=== PATIENT | male | born 1995 | race Caucasian/White ===

== ENCOUNTER 2017-06-04 10:02 | Emergency (ER) | payer OTHER, MEDICAID, SELFPAY | END 2017-06-04 10:53 | PROVIDERS: Emergency Provider Emergency Medicine; Visit Provider Emergency Medicine | DX: M79.602 Pain in left arm (principal); R20.0 Anesthesia of skin; R11.0 Nausea | CPT/HCPCS: 96372; 99283; J1885 ==

== ENCOUNTER 2017-07-22 17:10 | Emergency (ER) | payer OTHER, MEDICAID, SELFPAY ==
[2017-07-22 17:28] VITALS: BP 123/84; PULSE 82; RESP 16; TEMP 37.1; O2SAT 98; BMI 20.5
--- NOTE | 2017-07-22 17:49 | ED_ITS ---
Pediatric Review of Systems <ISIS Lei - Last Filed: 07/22/17 21:36> Constitutional: Reports as per HPI Eyes: Reports as per HPI ENT: Reports other (Foreign body left ear) Cardiovascular: Reports as per HPI Respiratory: Reports as per HPI Gastrointestinal: Reports as per HPI Genitourinary: Reports as per HPI Musculoskeletal: Reports as per HPI Integumentary: Reports as per HPI Neurological: Reports as per HPI Psychiatric: Reports as per HPI Endocrine: Reports as per HPI Hematological/Lymphatic: Reports as per HPI Allergic/Immunologic: Reports as per HPI Pediatric Exam <ISIS Lei - Last Filed: 07/22/17 21:36> Head Head exam: normocephalic, atraumatic and normal inspection Eye Eye exam: Present normal appearance, PERRL and EOMI ENT ENT exam: normal exam, normal oropharynx, normal external ear exam and other ( Floppy whitish foreign body seen to left external ear canal deep in the canal) Respiratory Respiratory exam: Present normal lung sounds bilaterally; Absent respiratory distress and wheezes Cardiovascular Cardiovascular exam: Present regular rate, normal rhythm, normal heart sounds, + S1 and +S2; Absent systolic murmur, diastolic murmur, rubs, gallop and clicks Neurological Exam Neurological exam: Present alert, oriented X3 and normal gait Skin Skin exam: Present warm, dry and intact Course <ISIS Lei - Last Filed: 07/22/17 21:36> Vital Signs - 8 hr 07/22/17 17:28 07/22/17 18:58 Temperature 98.8 F Pulse Rate 82 88 Respiratory Rate 16 15 Blood Pressure 123/84 H 131/73 H Pulse Oximetry 98 100 <Mary Arana MD - Last Filed: 07/23/17 07:37> Vital Signs - 8 hr 07/22/17 17:28 07/22/17 18:58 Temperature 98.8 F Pulse Rate 82 88 Respiratory Rate 16 15 Blood Pressure 123/84 H 131/73 H Pulse Oximetry 98 100 Medical Decision Making <ISIS Lei - Last Filed: 07/22/17 21:36> MDM Narrative Medical decision making narrative: Attempted to irrigate the left external ear canal with lukewarm water and was unable to remove a foreign body. Patient tolerated well no complications. Will have patient follow up with ENT. Patient to call ENT office tomorrow to schedule follow-up appointment. Return emergency room for any worsening symptoms. Discharge Plan Departure Patient Disposition: Home, Self-Care Clinical Impression: Acute foreign body of left ear Discharge Date/Time: 07/22/17 19:01 Interventions: ED Discharge Assessment Last Done: 07/22/17 18:58 Instructions: DI for Removal of Foreign Body From Ear Activity Restrictions/Additional Instructions: Was not able to remove the foreign body of the left ear this evening with gentle irrigation. You referred to a ear nose and throat specialty. Call their office tomorrow at number provided. Use [id number] Tylenol or Motrin as needed for any discomfort. For any worsening symptoms return to the emergency room. Prescriptions: No Action No Known Home Medications RF: 0 Referrals: Laith Yang MD [Physician] - <Mary Arana MD - Last Filed: 07/23/17 07:37> Sign Out Provider Sign Out Attestation: I attest to the documentation recorded. I was the attending of record and available in the ED throught course. I agree with assessment and plan.
[2017-07-22 18:58] VITALS: BP 131/73; PULSE 88; RESP 15; O2SAT 100
== END 2017-07-22 19:01 | disposition home or self-care (01) ==
PROVIDERS: Emergency Provider Nurse Practitioner Family
DX: T16.2XXA Foreign body in left ear, initial encounter (principal)
CPT/HCPCS: 99282

== ENCOUNTER 2017-08-05 17:04 | Emergency (ER) | payer OTHER, MEDICAID, SELFPAY ==
[2017-08-05 17:14] VITALS: BP 154/80; PULSE 66; RESP 16; TEMP 36.6; O2SAT 100; BMI 20.5
--- NOTE | 2017-08-05 17:18 | DI.RAD.S_ITS ---
PROCEDURE: XR HIP W PEL IF DONE LT 2V INDICATIONS: 22 year-old male with persistent left hip pain after skateboard injury 2 weeks ago. TECHNIQUE: AP pelvis with lateral view(s) of the left hip(s). COMPARISON: None. FINDINGS: Bones: No fractures or dislocations. Pelvic ring appears intact. No suspicious bony lesions. Soft tissues: The visualized bowel gas pattern is normal. No suspicious soft tissue calcifications. IMPRESSION: No acute bony injuries of the left hip. Dictated by: Uday Dennison M.D. on 08/05/2017 at 18:43 Approved by: Uday Dennison M.D. on 08/05/2017 at 18:45
--- NOTE | 2017-08-05 20:13 | ED_ITS ---
HPI - Extremity Injury (Lower) <ISIS Esteban - Last Filed: 08/05/17 20:13> General Chief Complaint: Extremity Injury, Lower Stated Complaint: LEFT HIP PAIN Time Seen by Provider: 08/05/17 19:58 Source: patient Mode of arrival: ambulatory Limitations: no limitations History of Present Illness HPI Narrative: denies any other injury or issue than the L hip complaint: hip injury Onset (ago): week(s) (2) Injury: Left: hip Type of Injury: other (fall while skateboarding) Place: street/outdoors Severity: mild Severity scale (1-10): 1 Relieving factors: nothing Exacerbating factors: movement Context: fall Associated symptoms: snap/pop sensation Other symptoms: none Related Data Home Medications Medication Instructions Recorded Confirmed No Known Home Medications 07/22/17 07/22/17 Allergies Allergy/AdvReac Type Severity Reaction Status Date / Time No Known Drug Allergies Allergy Verified 07/22/17 17:31 Review of Systems <ISIS Esteban - Last Filed: 08/05/17 20:13> Review of Systems All systems reviewed & are unremarkable except as noted in HPI and below Constitutional Reports as per HPI ENT Ears, Nose, Mouth, and Throat: Denies neck pain Cardiovascular Denies chest pain and Denies dyspnea Respiratory Denies dyspnea Gastrointestinal Gastrointestinal: Denies abdominal pain Genitourinary Denies difficulty urinating Musculoskeletal Reports as per HPI, Denies abnormal gait, Reports back pain (low back and tailbone), Denies limited range of motion, Denies muscle weakness, Denies neck pain, Denies numbness and Denies radiating pain into limb Integumentary/Breasts Reports wounds (has scrape on L hip) Neurologic Denies abnormal gait and Denies numbness Exam <ISIS Esteban - Last Filed: 08/05/17 20:13> Initial Vital Signs Initial Vital Signs: Vital Signs Temperature 97.8 F 08/05/17 17:14 Pulse Rate 66 08/05/17 17:14 Respiratory Rate 16 08/05/17 17:14 Blood Pressure 154/80 H 08/05/17 17:14 Pulse Oximetry 100 08/05/17 17:14 Const General: cooperative, healthy appearing, comfortable, well developed and well groomed Nutritional Appearance: average body habitus and well nourished Orientation: alert, awake and oriented x3 [facility] Head: normal to inspection, normocephalic and atraumatic Ears: hearing grossly normal bilaterally and external ears normal Nose: external nose normal Face and sinus: normal facial exam Eyes General: appearance normal, both eyes and all related structures Visual Diamond: normal visual diamond by confrontation Alignment and Position: alignment normal Eyelids: eyelids normal Conjunctivae: conjunctivae normal Sclera: sclerae normal Pupils: PERRL Neck Neck: normal visual inspection, full ROM, trachea midline and supple Resp Effort & Inspection: normal respiratory effort and able to speak in complete sentences GI Inspection: normal to inspection Palpation: soft and No tender Back/Spine/Pelvis Back: normal to inspection, No back tenderness, No CVA tenderness and No ecchymosis Cervical Spine: normal cervical lordosis and cervical ROM normal Thoracic/Lumbar Spine: thoracic and lumbar spine normal to inspection Sacroiliac Joints: nontender Sacrum: no tenderness Skin General: elasticity normal, turgor normal and other (dime size erythema arie on L hip and pt says that is the scrape he was talking about) Trauma: lacerations and/or abrasions noted Wounds: wound noted Neuro General: alert, awake and oriented x3 Cranial Nerves: PERRL Cognition: normal cognition Speech: speech normal Gait: normal gait Motor: muscle tone normal throughout Sensory Exam: no sensory deficits noted Extrem General: normal to inspection and full ROM Right upper extremity: normal to inspection and full ROM Left upper extremity: normal to inspection and full ROM Right lower extremity: normal to inspection and full ROM Left lower extremity: normal to inspection and full ROM Other: no tenderness to B hips Psych Appearance: grossly normal and well kempt Mental Status: mental status grossly normal Speech and Movement: speech and movement normal Mood: congruent mood Affect: normal affect Attitude: cooperative Thought Process: normal Thought Content: normal Judgment: judgment good <Kelle Noble DO - Last Filed: 08/06/17 04:17> Initial Vital Signs Initial Vital Signs: Vital Signs Temperature 97.8 F 08/05/17 17:14 Pulse Rate 66 08/05/17 17:14 Respiratory Rate 16 08/05/17 17:14 Blood Pressure 154/80 H 08/05/17 17:14 Pulse Oximetry 100 08/05/17 17:14 Course <ISIS Etseban - Last Filed: 08/05/17 20:13> Orders Ordered: ED Orders 08/05/17 17:18 XR hip w pel if done LT 2V Stat Vital Signs - 8 hr 08/05/17 20:36 Pulse Rate 57 L Blood Pressure 125/80 H Pulse Oximetry 98 <Kelle Noble DO - Last Filed: 08/06/17 04:17> Orders Ordered: ED Orders 08/05/17 17:18 XR hip w pel if done LT 2V Stat Vital Signs - 8 hr 08/05/17 20:36 Pulse Rate 57 L Blood Pressure 125/80 H Pulse Oximetry 98 MDM - Extremity Injury (Lower) <ISIS Esteban - Last Filed: 08/05/17 20:13> Differential Diagnosis Likely fracture of hip and other (fall, hip strain, contusion, abrasion, lac) Medical Records Attestation: I reviewed the patient's medical records. Imaging Data other: Radiologist's impression: Patient: Pelon Hernández MR#: [id number] : 1995 Acct:[id number] Age/Sex: 22 / M Date of Service: 08/05/17 Loc: ED Accession Number: [id number] Procedure: XR hip w pel if done LT 2V Ordering Provider: Danis Toledo D.O. PROCEDURE: XR HIP W PEL IF DONE LT 2V INDICATIONS: 22 year-old male with persistent left hip pain after skateboard injury 2 weeks ago. TECHNIQUE: AP pelvis with lateral view(s) of the left hip(s). COMPARISON: None. FINDINGS: Bones: No fractures or dislocations. Pelvic ring appears intact. No suspicious bony lesions. Soft tissues: The visualized bowel gas pattern is normal. No suspicious soft tissue calcifications. IMPRESSION: No acute bony injuries of the left hip. Dictated by: Uday Dennison M.D. on 08/05/2017 at 18:43 Approved by: Uday Dennison M.D. on 08/05/2017 at 18:45 Discharge Plan Departure Patient Disposition: Home, Self-Care Clinical Impression: Hip strain Discharge Date/Time: 08/05/17 20:37 Interventions: ED Discharge Assessment Last Done: 08/05/17 20:36 Instructions: DI for Muscle Strain Prescriptions: No Action No Known Home Medications RF: 0 Referrals: Zaire Da Silva DO [Non-Staff] - (in 5 days as needed) Riley Mast MD [Non-Staff] - Sugar,Abdullahi Gage DO [Non-Staff] - Laith Carney MD [Non-Staff] - <Kelle Noble DO - Last Filed: 08/06/17 04:17> Cosign ED Attending Cosignature Attestation: I was immediately available in the department for consultation. Documentation has been reviewed. I agree with assessment and plan.
[2017-08-05 20:36] VITALS: BP 125/80; PULSE 57; O2SAT 98
== END 2017-08-05 20:37 | disposition home or self-care (01) ==
PROVIDERS: Emergency Provider Nurse Practitioner
DX: S76.012A Strain of muscle, fascia and tendon of left hip, initial encounter (principal); V00.131A Fall from skateboard, initial encounter
CPT/HCPCS: 73502; 99282; 99283

== ENCOUNTER 2019-05-16 15:57 | Emergency (ER) | payer OTHER, MEDICAID, SELFPAY ==
[2019-05-16 15:58] VITALS: BP 135/74; PULSE 69; RESP 12; TEMP 36.8; O2SAT 100; BMI 23.1
--- NOTE | 2019-05-16 16:05 | DI.RAD.S_ITS ---
PROCEDURE: XR HAND RT MIN 3V INDICATIONS: laceration TECHNIQUE: 3 views of the hand(s) acquired. COMPARISON: None. FINDINGS: Bones: No fractures or dislocations. Carpal bones are normally aligned. No suspicious bony lesions. Soft tissues: No suspicious soft tissue calcifications. IMPRESSION: No fracture or foreign body seen. Dictated by: Sunil Blair M.D. on 05/16/2019 at 16:51 Approved by: Sunil Blair M.D. on 05/16/2019 at 16:51
--- NOTE | 2019-05-16 16:06 | PC.NURSE ---
gauze and coban applied in triage. Bleeding controlled at time of dressing change.
--- NOTE | 2019-05-16 17:46 | ED.WOUNDLAC ---
HPI - Wound/Laceration <ISIS White - Last Filed: 05/16/19 21:06> General Chief Complaint: Wound/Laceration Stated Complaint: RIGHT HAND LACERATION Time Seen by Provider: 05/16/19 16:58 Source: patient Mode of arrival: Ambulatory History of Present Illness HPI narrative: 24-year-old male presents to the emergency department complaining of a laceration to the tip of his right 2nd and 3rd fingers a few minutes ago. He states he cut himself with a knife. Was controlled with pressure. He denies any nail involvement. Patient reports his Tdap was also administered approximately 2 years ago. Patient denies any numbness, tingling, other injuries, bleeding problems, fevers, chills, nausea, vomiting, diarrhea, or any other concerns. Related Data Home Medications Medication Instructions Recorded Confirmed No Known Home Medications 07/22/17 07/22/17 Allergies Allergy/AdvReac Type Severity Reaction Status Date / Time No Known Drug Allergies Allergy Verified 05/16/19 16:05 Review of Systems <ISIS White - Last Filed: 05/16/19 21:06> Review of Systems Narrative: REVIEW OF SYSTEMS: GENERAL: Denies fever or chills. HENT: Denies head trauma. EYE: Denies double vision or vision loss. CARDIOVASCULAR: Denies syncope. MUSCULOSKELETAL: Denies weakness, or deformities. INTEGUMENTARY: Complains of laceration, see HPI. NEURO: Denies numbness or tingling. Patient History <ISIS White - Last Filed: 05/16/19 21:06> Medical History Broken collarbone (Acute) Social History Smoking Status: Current every day smoker Smoking Status: Current every day smoker alcohol intake frequency: holidays/special occasions only Substance Use Type: marijuana Exam <ISIS White - Last Filed: 05/16/19 21:06> Initial Vital Signs Initial Vital Signs: Vital Signs Temperature 98.3 F 05/16/19 15:58 Pulse Rate 69 05/16/19 15:58 Respiratory Rate 12 05/16/19 15:58 Blood Pressure 135/74 05/16/19 15:58 Pulse Oximetry 100 05/16/19 15:58 PHYSICAL EXAMINATION: GENERAL: Well groomed, alert, and cooperative. Answers questions promptly and appropriately. Vital signs noted. HENT: Normocephalic, atraumatic. RESPIRATORY: Normal respiratory rate, trachea midline, airway patent. No stridor, nasal flaring or accessory muscle use. MUSCULOSKELETAL: Normal gait and coordination. Equal tone and mass bilaterally. EXTREMITIES: CMS intact. Moves all extremities. SKIN: Warm, dry, soft, appropriate color for ethnicity. A 2 cm thin superficial laceration noted to the tip of 2nd right finger not involving the nail. A less than 1 cm laceration to the tip of 3rd finger, not involving the nail. No bleeding. Laceration was not when fingers were bend or extended. Cap refill <2 seconds. NEURO: Alert and Oriented X 3. Good coordination. Light touch sensation intact to the tip of finger. PSYCH: Appropriate affect and mood. <Marisabel Lundy MD - Last Filed: 05/30/19 07:01> Initial Vital Signs Initial Vital Signs: Vital Signs Temperature 98.3 F 05/16/19 15:58 Pulse Rate 69 05/16/19 15:58 Respiratory Rate 12 05/16/19 15:58 Blood Pressure 135/74 05/16/19 15:58 Pulse Oximetry 100 05/16/19 15:58 Course <ISIS White - Last Filed: 05/16/19 21:06> Course Course Narrative: Wound was irrigated extensively and Steri-Strips were applied by nursing. Patient was given a finger splint for his 2nd digit to prevent excessive movement while the wound heals. Orders Ordered: ED Orders 05/16/19 16:05 XR hand RT min 3V Stat Vital Signs Vital signs: Vital Signs - 8 hr 05/16/19 15:58 05/16/19 17:49 Temperature 98.3 F Pulse Rate 69 55 L Respiratory Rate 12 16 Blood Pressure 135/74 Pulse Oximetry 100 98 <Marisabel Lundy MD - Last Filed: 05/30/19 07:01> Orders Ordered: ED Orders 05/16/19 16:05 XR hand RT min 3V Stat Vital Signs Vital signs: Vital Signs - 8 hr 05/16/19 15:58 05/16/19 17:49 Temperature 98.3 F Pulse Rate 69 55 L Respiratory Rate 12 16 Blood Pressure 135/74 Pulse Oximetry 100 98 MDM - Wound/Laceration <Sima Lopez PROSTHETIC AIDES TEACHER - Last Filed: 05/16/19 21:06> Medical Records Attestation: I reviewed the patient's medical records. Lab Data Attestation: I reviewed the patient's lab results. Imaging Data Extremity x-ray #1: Radiologist's Impression: [address] [address] XRay Report Signed Patient: Pelon Hernández TMR#: [id number] : 1995Acct:[id number] Age/Sex: 24 / MDate of Service: 05/16/19 Loc: ED Accession Number: [id number] Procedure: XR hand RT min 3V Ordering Provider: Marisabel Lundy MD PROCEDURE: XR HAND RT MIN 3V INDICATIONS: laceration TECHNIQUE: 3 views of the hand(s) acquired. COMPARISON: None. FINDINGS: Bones: No fractures or dislocations. Carpal bones are normally aligned. No suspicious bony lesions. Soft tissues: No suspicious soft tissue calcifications. IMPRESSION: No fracture or foreign body seen. Dictated by: Sunil Blair M.D. on 05/16/2019 at 16:51 Approved by: Sunil Blair M.D. on 05/16/2019 at 16:51 [facility] Narrative Medical decision making narrative: 24-year-old male presenting to the emergency department for superficial lacerations to his 2nd and 3rd digit. X-rays (placed in triage) were negative for any bony involvement. Due to superficial nature of lacerations in close proximity of skin margin, Steri-Strips were applied after extensive irrigation. Patient was counseled extensively to watch for signs of infection. Patient is up-to-date on his Tdap. Follow-up instructions were given. Patient agrees to plan of care verbalized understanding. Discharge Plan Departure Patient Disposition: Home Clinical Impression: Finger laceration Qualifiers: Encounter type: initial encounter Finger: ring finger Damage to nail status: without damage Foreign body presence: without foreign body Laterality: right Qualified Code(s): S61.214A - Laceration without foreign body of right ring finger without damage to nail, initial encounter Discharge Date/Time: 05/16/19 17:50 Instructions: DI for Laceration Repair Activity Restrictions/Additional Instructions: Thank you for entrusting me with your care today. As discussed, Steri-Strips were placed on your wound. Do not pull these off, they will fall off on their own, if they start to peel off you can cut off the loose ends. Please leave the dressing in place for 24 hours, use the finger splint for the next 2-3 days. Watch for signs of infection such as increasing redness, increasing pain, pus, increasing warmth to finger, if these occur please be seen in the walk-in clinic or primary care. Do not immerse her hand in any water such as dirty paraffin plant sweater operator or a hot tub. You may shower in 24 hours without the bandages. Return emergency department for any severe symptoms such as chest pain, shortness of breath, or high fevers. Prescriptions: No Action No Known Home Medications RF: 0 Stand Alone Forms: Work Release Note
[2019-05-16 17:49] VITALS: PULSE 55; RESP 16; O2SAT 98
== END 2019-05-16 17:50 | disposition home or self-care (01) ==
PROVIDERS: Emergency Provider Nurse Practitioner
DX: S61.214A Laceration without foreign body of right ring finger without damage to nail, initial encounter (principal); S61.210A Laceration without foreign body of right index finger without damage to nail, initial encounter; W26.0XXA Contact with knife, initial encounter
CPT/HCPCS: 73130; 99283

== ENCOUNTER → 2020-04-05 11:14 | Outpatient (CLI) | payer OTHER, MEDICAID, SELFPAY ==
[2020-04-05 11:42] LABS: COVID19 -Nasal RAPID Negative (Negative)
== END ==
PROVIDERS: Visit Provider Physician Assistant
DX: Z20.822 Contact with and (suspected) exposure to COVID-19 (principal)
CPT/HCPCS: 87635

== ENCOUNTER 2020-05-14 11:01 | Emergency (ER) | payer OTHER, MEDICAID, SELFPAY ==
[2020-05-14 11:14] VITALS: BP 150/86; PULSE 78; RESP 16; TEMP 37.1; O2SAT 97; BMI 25.7
--- NOTE | 2020-05-14 11:16 | DI.CT.S_ITS ---
PROCEDURE: CT CERVICAL SPINE WO CON INDICATIONS: fall pain etoh TECHNIQUE: Noncontrast 3 mm thick sections acquired from the skull base to the T4 level. Sagittal and coronal reformats were then constructed. For radiation dose reduction, the following was used: automated exposure control, adjustment of mA and/or kV according to patient size. COMPARISON: None. FINDINGS: Image quality: Excellent. Bones: No fractures or subluxation. Visualized superior ribs are intact. Soft tissues: Prevertebral soft tissues are normal in thickness. No paravertebral hematomas. No apical pneumothoraces. IMPRESSION: 1. No fracture or subluxation. Dictated by: Waqar Benjamin M.D. on 05/14/2020 at 11:59 Approved by: Waqar Benjamin M.D. on 05/14/2020 at 12:00
--- NOTE | 2020-05-14 11:16 | DI.CT.S_ITS ---
PROCEDURE: CT HEAD/BRAIN WO CON INDICATIONS: fall ETOH TECHNIQUE: Noncontrast 4.5 mm thick angled axial sections acquired from the foramen magnum to the vertex, with coronal and sagittal reformats. For radiation dose reduction, the following was used: automated exposure control, adjustment of mA and/or kV according to patient size. COMPARISON: None. FINDINGS: Image quality: Excellent. CSF spaces: Basal cisterns are patent. No extra-axial fluid collections. Ventricles are normal in size and shape. Brain: No intracranial hemorrhage, mass, or mass effect. Montano-white matter interface is normal. Skull and face: Calvarium and visualized facial bones are intact, without suspicious lesions. Sinuses: Visualized sinuses and mastoids are clear. IMPRESSION: 1. No acute intracranial abnormality. Dictated by: Waqar Benjamin M.D. on 05/14/2020 at 11:55 Approved by: Waqar Benjamin M.D. on 05/14/2020 at 11:56
--- NOTE | 2020-05-14 11:16 | DI.CT.S_ITS ---
PROCEDURE: CT FACIAL BONES WO CON INDICATIONS: fall TECHNIQUE: Noncontrast 2.5 mm thick axial images acquired from the mandible through the frontal sinuses, with coronal and sagittal reformatting. For radiation dose reduction, the following was used: automated exposure control, adjustment of mA and/or kV according to patient size. COMPARISON: [facility], CT, CT HEAD/BRAIN WO CON, 05/14/2020, 11:36. FINDINGS: Image quality: Excellent. Bones and teeth: Orbital trent are intact. Sinus trent show no fracture or deformity. Nasal bones and septum are intact. Visualized portions of the mandible demonstrate no fractures or subluxation. Zygomatic arches are intact. Pterygoid plates are intact. Visualized portions of the skull base and auditory canals are intact. Sinuses: Paranasal sinuses are aerated, without fluid levels, mucosal thickening, or mucoceles. Mastoid air cells are aerated. Soft tissues: No edema, masses, or fluid collections. No enlarged lymph nodes. No soft tissue lacerations or debris. The globes appear intact. Vascular: Visualized vascular structures appear normal in the absence of contrast. Bony vascular foramina and canals are intact. IMPRESSION: 1. No acute fracture identified. Dictated by: Waqar Benjamin M.D. on 05/14/2020 at 11:56 Approved by: Waqar Benjamin M.D. on 05/14/2020 at 11:58
--- NOTE | 2020-05-14 11:22 | DI.RAD.S_ITS ---
PROCEDURE: XR WRIST LT MIN 3V INDICATIONS: pain fall TECHNIQUE: 4 views of the wrist were acquired. COMPARISON: None. FINDINGS: Bones: No fractures or dislocations. No suspicious bony lesions. Scaphoid view: Scaphoid is intact. Soft tissues: No suspicious soft tissue calcifications. IMPRESSION: No fracture. No osseous lesion. If symptoms and/or clinical suspicion for pathology persists, further assessment with repeat radiographs (7-10 days) or advanced imaging (e.g. CT, MRI or bone scan) should be considered. Dictated by: Merissa Gonzales MD, PhD on 05/14/2020 at 11:55 Approved by: Merissa Gonzales MD, PhD on 05/14/2020 at 11:56
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
[2020-05-14] MEDS: HYDROCODONE/ACET 5/325 TABLET 1 TAB PO (11:28)
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
[2020-05-14 11:58] VITALS: BP 135/89; PULSE 69; RESP 18; O2SAT 99
[2020-05-14 12:26] VITALS: BP 131/82; PULSE 53; RESP 14; O2SAT 98
== END 2020-05-14 12:29 | disposition home or self-care (01) ==
PROVIDERS: Emergency Provider Emergency Medicine
DX: S16.1XXA Strain of muscle, fascia and tendon at neck level, initial encounter (principal); W01.0XXA Fall on same level from slipping, tripping and stumbling without subsequent striking against object, initial encounter
CPT/HCPCS: 70450; 70486; 72125; 73110; 99285

== ENCOUNTER 2022-11-18 15:53 | Emergency (ER) | payer SELFPAY ==
[2022-11-18 15:58] VITALS: BP 137/92; PULSE 63; RESP 18; TEMP 36.8; O2SAT 100; BMI 23.0
--- NOTE | 2022-11-18 17:19 | PC.NURSE ---
Pt reports no new sexual partners since last monogamous relationship break-up 3 mos ago. Reports rash, strong foul odor coming from testicles/groin area. States itchy, inflamed, odorous, painful to palpate testicles x several months. Also, rash on r-thigh, just above the knee.
--- NOTE | 2022-11-18 17:20 | ED.SKABFB ---
HPI - Skin/Abscess/Foreign Bdy <Kameron Galo PA-C - Last Filed: 11/18/22 18:59> General Chief complaint: Skin/Abscess/Foreign Body Stated complaint: skin issues on balls and leg Time Seen by Provider: 11/18/22 17:07 Source: patient Mode of arrival: Ambulatory Limitations: no limitations History of Present Illness HPI narrative: 27-year-old male with no reported past medical history presents to the ED with rashes in his genital area, inguinal area, left thigh.? Patient states that the rash has been going on for about 5 months or longer.? Patient states that the rash on the leg keeps flaring up and down but never resolves.? Patient states that the groin rash is itchy, flaky.? Patient denies fever, chills, nausea, vomiting.? Patient denies injection drug use.? Patient endorses marijuana use. Related Data Previous Rx's Medication Instructions Recorded hydrocodone 5 mg-acetaminophen 325 1 tab PO Q6H PRN pain #10 tabs 05/14/ mg tablet cephalexin 500 mg capsule 500 mg PO QID 7 days #28 caps 11/18/22 fluconazole 150 mg tablet 150 mg PO QWEEK 3 weeks #3 tabs 11/18/22 sulfamethoxazole 800 1 tab PO BID 7 days #14 tabs 11/18/22 mg-trimethoprim 160 mg tablet (Bactrim DS) Allergies Allergy/AdvReac Type Severity Reaction Status Date / Time diphenhydramine Allergy Verified 11/18/22 15:58 [From Rachelle] Review of Systems <Kameron Galo PA-C - Last Filed: 11/18/22 18:59> Review of Systems ROS Unobtainable: All systems reviewed & are unremarkable except as noted in HPI and below Constitutional Constitutional: Denies chills, Denies fatigue, Denies fever(s), Denies frequent falls, Denies lethargy and Denies weakness Eyes Eyes: Denies change in vision, Denies eye discharge, Denies irritation and Denies loss of vision ENT Ears, Nose, Mouth, and Throat: Denies change in voice, Denies dizziness, Denies neck pain, Denies sore throat and Denies throat swelling Cardiovascular Cardiovascular: Denies chest pain, Denies irregular heart rhythm, Denies lightheadedness, Denies palpitations, Denies dyspnea, Denies dyspnea on exertion and Denies orthopnea Respiratory Respiratory: Denies cough, Denies dyspnea, Denies dyspnea on exertion and Denies wheezing Gastrointestinal Gastrointestinal: Denies abdominal pain, Denies change in bowel habits, Denies diarrhea, Denies nausea and Denies vomiting Genitourinary Genitourinary: Denies hematuria, Denies flank pain, Denies urinary incontinence and Denies urinary urgency Musculoskeletal Musculoskeletal: Denies back pain, Denies muscle weakness, Denies neck pain, Denies numbness and Denies tingling Integumentary/Breasts Skin/Breast: Denies pruritus, Denies erythema, Reports rash and Denies wounds Neurologic Neurologic: Denies behavioral changes, Denies confusion, Denies dizziness, Denies frequent falls, Denies loss of vision, Denies numbness, Denies tingling and Denies weakness Psychiatric Psychiatric: Denies anxiety, Denies behavioral changes, Denies confusion, Denies depression, Denies homicidal ideation and Denies suicidal ideation Endocrine Endocrine: Denies fatigue, Denies flushing and Denies palpitations Hematologic/Lymphatic Hematologic/Lymphatic: Denies easy bruising Allergic/Immunologic Allergic/Immunologic: Denies urticaria, Denies throat swelling and Denies wheezing Patient History <Kameron Galo PA-C - Last Filed: 11/18/22 18:59> Medical History Broken collarbone Social History Smoking Status: Current every day smoker Smoking Status: Current every day smoker tobacco type: vaping alcohol intake frequency: holidays/special occasions only Substance Use Type: marijuana Exam <Kameron Galo PA-C - Last Filed: 11/18/22 18:59> Narrative Exam Narrative: Narrative Exam Narrative: Const General:?cooperative, healthy appearing and comfortable [facility] Head:?normal to inspection ?Ears:?hearing grossly normal bilaterally ?Nose:?external nose normal ?Face and sinus:?normal facial exam and sinuses nontender ?Mouth:?oral mucosae normal ?Throat:?posterior oropharynx normal Eyes General:?appearance normal, both eyes and all related structures Neck Neck:?normal visual inspection and no lymphadenopathy noted Resp Effort & Inspection:?normal respiratory effort ?Auscultation:?clear to auscultation bilaterally Cardio Rate:?regular rate ?Rhythm:?regular rhythm Integumentary There is a raised, discrete, erythematous rash on the left thigh, groin region.? The groin region is also consistent with a fungal infection along with a superimposed bacterial infection.. Neuro General:?patient alert, patient awake and patient oriented x3 Initial Vital Signs Initial Vital Signs: Vital Signs Temperature 98.3 F 11/18/22 15:58 Pulse Rate 63 11/18/22 15:58 Respiratory Rate 18 11/18/22 15:58 Blood Pressure 137/92 H 11/18/22 15:58 Pulse Oximetry 100 11/18/22 15:58 Oxygen Delivery Method Room Air 11/18/22 15:58 <Kelle Noble DO - Last Filed: 11/19/22 18:00> Initial Vital Signs Initial Vital Signs: Vital Signs Temperature 98.3 F 11/18/22 15:58 Pulse Rate 63 11/18/22 15:58 Respiratory Rate 18 11/18/22 15:58 Blood Pressure 137/92 H 11/18/22 15:58 Pulse Oximetry 100 11/18/22 15:58 Oxygen Delivery Method Room Air 11/18/22 15:58 Course <Kameron Galo PA-C - Last Filed: 11/18/22 18:59> Vital Signs Vital signs: Vital Signs - 8 hr 11/18/22 15:58 11/18/22 17:24 Temperature 98.3 F Pulse Rate 63 64 Respiratory Rate 18 18 Blood Pressure 137/92 H 141/81 H Pulse Oximetry 100 99 Oxygen Delivery Method Room Air Room Air <Kelle Noble DO - Last Filed: 11/19/22 18:00> Vital Signs Vital signs: Vital Signs - 8 hr 11/18/22 15:58 11/18/22 17:24 Temperature 98.3 F Pulse Rate 63 64 Respiratory Rate 18 18 Blood Pressure 137/92 H 141/81 H Pulse Oximetry 100 99 Oxygen Delivery Method Room Air Room Air MDM - Skin/Abscess/Foreign Bdy <RACHEL Barron Last Filed: 11/18/22 18:59> MDM Narrative Medical decision making narrative: 27-year-old male with no reported past medical history presents to the ED with rashes in his genital area, inguinal area, left thigh.? Patient's rash is consistent with a fungal infection with superimposed bacterial infection.? Will treat with fluconazole and antibiotics.? Recommend follow-up with surface plate inspector if symptoms persist.? ED return precautions were discussed with patient.? Patient verbalized understanding.? Medical records reviewed: Yes Discharge Plan Departure Patient Disposition: Home Clinical Impression: Rash Instructions: DI for Staph Infection, DI for Tinea Corporis Activity Restrictions/Additional Instructions: You were evaluated in the ED today for a rash. It appears that you have a fungal infection and a superimposed bacterial infection. You are being prescribed fluconazole for the fungal infection, which you will take 1 tablet every week for 3 weeks. You were also being prescribed Bactrim and cephalexin for the bacterial infection. Please take those as prescribed. Please follow-up with a surface plate inspector in a few days if your symptoms do not resolve. Return to the ED if you experience any worsening symptoms, chest pain, shortness of breath. Prescriptions: New cephalexin 500 mg capsule 500 mg PO QID 7 Days Qty: 28 0RF sulfamethoxazole-trimethoprim [Bactrim DS] 800-160 mg tablet 1 tab PO BID 7 Days Qty: 14 0RF fluconazole 150 mg tablet 150 mg PO QWEEK 21 Days Qty: 3 0RF No Action hydrocodone-acetaminophen 5-325 mg tablet 1 tab PO Q6H PRN (Reason: pain) Qty: 10 0RF Referrals: Miscellaneous,Doctor, MD [Primary Care Provider] - Stand Alone Forms: Patient Portal/API <Kelle Noble DO - Last Filed: 11/19/22 18:00> Cosign ED Attending Lissett Attestation: I was immediately available in the department for consultation. Documentation has been reviewed.
[2022-11-18 17:24] VITALS: BP 141/81; PULSE 64; RESP 18; O2SAT 99
--- NOTE | 2022-11-18 17:37 | PC.NURSE ---
Pt changed into gown. Provider/RN in room with pt for physical exam.
== END 2022-11-18 17:37 | disposition home or self-care (01) ==
PROVIDERS: Emergency Provider Student in an Organized Health Care Education/Training Program
DX: R21 Rash and other nonspecific skin eruption (principal)
CPT/HCPCS: 99281

== ENCOUNTER 2023-04-16 12:37 | Emergency (ER) | payer SELFPAY ==
[2023-04-16 13:03] VITALS: BP 132/89; PULSE 65; RESP 14; TEMP 36.5; O2SAT 99; BMI 23.0
--- NOTE | 2023-04-16 13:08 | DI.CT.S_ITS ---
PROCEDURE: CT CERVICAL SPINE WO CON INDICATIONS: fall 03/31 to right face/head. +visual change, franco, nausea TECHNIQUE: Noncontrast 3 mm thick sections acquired from the skull base to the T4 level. Sagittal and coronal reformats were then constructed. For radiation dose reduction, the following was used: automated exposure control, adjustment of mA and/or kV according to patient size. COMPARISON: None. FINDINGS: Image quality: Excellent. Bones: No fractures or dislocations. Visualized superior ribs are intact. Soft tissues: Prevertebral soft tissues are normal in thickness. No paravertebral hematomas. No apical pneumothoraces. IMPRESSION: No fracture. No acute osseous lesion. If symptoms and/or clinical suspicion for pathology persists, evaluation with MRI should be considered for further assessment. Dictated by: Merissa Gonzales MD, PhD on 04/16/2023 at 13:50 Approved by: Merissa Gonzales MD, PhD on 04/16/2023 at 13:52
--- NOTE | 2023-04-16 13:08 | DI.CT.S_ITS ---
PROCEDURE: CT HEAD/BRAIN WO CON INDICATIONS: fall 03/31 to right face/head. +visual change, franco, nausea TECHNIQUE: Noncontrast 4.5 mm thick angled axial sections acquired from the foramen magnum to the vertex, with coronal and sagittal reformats. For radiation dose reduction, the following was used: automated exposure control, adjustment of mA and/or kV according to patient size. COMPARISON: [facility], CT, CT CERVICAL SPINE WO CON, 05/14/2020, 11:36. [facility], CT, CT HEAD/BRAIN WO CON, 05/14/2020, 11:36. FINDINGS: Image quality: Diagnostic. CSF spaces: Basal cisterns are patent. No extra-axial fluid collections. Ventricles are normal in size and shape. Brain: No midline shift. No intracranial masses or hemorrhage. Montano-white matter interface is normal. Skull and face: Calvarium and visualized facial bones are intact, without suspicious lesions. Sinuses: Visualized sinuses and mastoids are clear. IMPRESSION: No acute intracranial disease process. Dictated by: Merissa Gonzales MD, PhD on 04/16/2023 at 13:52 Approved by: Merissa Gonzales MD, PhD on 04/16/2023 at 13:55
--- NOTE | 2023-04-16 13:08 | DI.CT.S_ITS ---
PROCEDURE: CT FACIAL BONES WO CON INDICATIONS: fall 03/31 to right face/head. +visual change, franco, nausea TECHNIQUE: Noncontrast 2.5 mm thick axial images acquired from the mandible through the frontal sinuses, with coronal and sagittal reformatting. For radiation dose reduction, the following was used: automated exposure control, adjustment of mA and/or kV according to patient size. COMPARISON: None. FINDINGS: Image quality: Excellent. Bones and teeth: Orbital trent are intact. Sinus trent show no fracture or deformity. Nasal bones and septum are intact. Visualized portions of the mandible demonstrate no fractures or subluxation. Zygomatic arches are intact. Pterygoid plates are intact. Visualized portions of the skull base and auditory canals are intact. Right lower 2nd molar dental vianney. Sinuses: Paranasal sinuses are aerated, without fluid levels, mucosal thickening, or mucoceles. Mastoid air cells are aerated. Soft tissues: No edema, masses, or fluid collections. No enlarged lymph nodes. No soft tissue lacerations or debris. Vascular: Visualized vascular structures appear normal in the absence of contrast. Bony vascular foramina and canals are intact. IMPRESSION: No fracture. Dictated by: Merissa Gonzales MD, PhD on 04/16/2023 at 13:55 Approved by: Merissa Gonzales MD, PhD on 04/16/2023 at 13:57
--- NOTE | 2023-04-16 15:41 | ED.HEATRA ---
HPI - Head Injury <Radha Moralez PA-C - Last Filed: 04/16/23 20:24> General Chief complaint: Head Injury Stated complaint: rt eye pain due to eye injury t-30 Time Seen by Provider: 04/16/23 15:41 Source: patient Mode of arrival: Ambulatory History of Present Illness HPI Narrative: 28-year-old male presents with concern for head injury sustained approximately 16 days ago above his right eye when he had a fall and hit his head without loss of consciousness. Patient states he was opening his car door and his foot slipped on the ice and because he is foot was slipping forward he pulled hard on the car door and it smashed into his forehead. He says he had a laceration and it was bleeding quite a bit and it swelled up quite a bit. Ever since then he has been having persistent eye pain in the right eye that feels like a pressure sensation. He describes it as 8/10 pain and feels it may possibly have been gradually worsening. He states that at the end of a workday he is noticed that his eye sometimes feels red in the whites of his eyes even though it looks normal in the mornings. He denies vision change except for the fact that he says he has been seeing floaters in his right eye ever since this injury. He has not previously been evaluated for it. He denies headache, change in vision, blood collection in his eye or any other symptoms. He states that he does not have health insurance which delayed his coming in for care. 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 Related Data Home Medications Medication Instructions Recorded Confirmed No Known Home Medications 04/16/23 04/16/23 Allergies Allergy/AdvReac Type Severity Reaction Status Date / Time diphenhydramine Allergy Verified 11/18/22 15:58 [From Benadryl] Review of Systems <Radha Moralez PA-C - Last Filed: 04/16/23 20:24> Review of Systems Narrative: See HPI Patient History <Radha Moralez PA-C - Last Filed: 04/16/23 20:24> Medical History Broken collarbone Social History Smoking Status: Current every day smoker Smoking Status: Current every day smoker tobacco type: vaping alcohol intake frequency: holidays/special occasions only Substance Use Type: marijuana Exam <Radha Moralez PA-C - Last Filed: 04/16/23 20:24> Narrative Exam Narrative: GENERAL: [28] year old patient appears stated age. Well-developed patient, in mild distress, somewhat anxious appearing. HEAD: Atraumatic. Normocephalic. EYES: Pupils equal round and reactive; equal by confrontation. Extraocular motions intact. No nystagmus. No scleral icterus. No injection or drainage. Visual acuity exam 20/30 bilateral with glasses on limited exam with ophthalmoscope in darkened room no obvious abnormality noted of the retina of the affected right eye. Ocular pressure 20 on the left and 18 on the right there is no tenderness or swelling of the orbit or eye. The right eye is very slightly injected. ENT: Nose without bleeding, purulent drainage. Airway patent. NECK: Trachea midline. CARDIOVASCULAR: Regular rate and rhythm without murmurs, gallops, or rubs. RESPIRATORY: Clear to auscultation. Breath sounds equal bilaterally. No wheezes, rales, or rhonchi. EXTREMITIES: No edema or joint tenderness. NEURO: AOx3. Cranial nerves intact. SKIN: No rash or erythema of visible areas Initial Vital Signs Initial Vital Signs: Vital Signs Temperature 97.7 F 04/16/23 13:03 Pulse Rate 65 04/16/23 13:03 Respiratory Rate 14 04/16/23 13:03 Blood Pressure 132/89 04/16/23 13:03 Pulse Oximetry 99 04/16/23 13:03 Oxygen Delivery Method Room Air 04/16/23 13:03 <Clayton Barbour MD - Last Filed: 04/17/23 08:13> Initial Vital Signs Initial Vital Signs: Vital Signs Temperature 97.7 F 04/16/23 13:03 Pulse Rate 65 04/16/23 13:03 Respiratory Rate 14 04/16/23 13:03 Blood Pressure 132/89 04/16/23 13:03 Pulse Oximetry 99 04/16/23 13:03 Oxygen Delivery Method Room Air 04/16/23 13:03 Course <Radha Moralez PA-C - Last Filed: 04/16/23 20:24> Orders Ordered: Discontinued Medications Fluorescein Sodium (Fluorescein 1 Mg Strip) 1 mg EYE-RIGHT NOW ONE Stop: 04/16/23 18:02 Proparacaine HCl (Proparacaine 0.5% Ophth Sylvia) 1 drops EYE-RIGHT NOW ONE Stop: 04/16/23 16:44 Last Admin: 04/16/23 16:51 Dose: 1 drop Documented By: RL Proparacaine HCl (Proparacaine 0.5% Ophth Sylvia) 1 drops EYE-LEFT NOW ONE Stop: 04/16/23 16:49 Last Admin: 04/16/23 16:51 Dose: 1 drop Documented By: [place] Vital Signs Vital signs: Vital Signs - 8 hr 04/16/23 13:03 Temperature 97.7 F Pulse Rate 65 Respiratory Rate 14 Blood Pressure 132/89 Pulse Oximetry 99 Oxygen Delivery Method Room Air <Clayton Barbour MD - Last Filed: 04/17/23 08:13> Orders Ordered: Discontinued Medications Fluorescein Sodium (Fluorescein 1 Mg Strip) 1 mg EYE-RIGHT NOW ONE Stop: 04/16/23 18:02 Proparacaine HCl (Proparacaine 0.5% Ophth Sylvia) 1 drops EYE-RIGHT NOW ONE Stop: 04/16/23 16:44 Last Admin: 04/16/23 16:51 Dose: 1 drop Documented By: RL Proparacaine HCl (Proparacaine 0.5% Ophth Sylvia) 1 drops EYE-LEFT NOW ONE Stop: 04/16/23 16:49 Last Admin: 04/16/23 16:51 Dose: 1 drop Documented By: RL Vital Signs Vital signs: Vital Signs - 8 hr 04/16/23 13:03 Temperature 97.7 F Pulse Rate 65 Respiratory Rate 14 Blood Pressure 132/89 Pulse Oximetry 99 Oxygen Delivery Method Room Air MDM - Head Injury <Radha Moralez PA-C - Last Filed: 04/16/23 20:24> Differential Diagnosis Differential diagnosis: Likely concussion without loss of consciousness, closed head injury and other (Eye injury, traumatic eye pain) Medical Records Attestation: I reviewed the patient's medical records. Imaging Data CT cervical: My Impression: Agree with Radiology interpretation Radiologist's Impression: [address] [address] [address] Scan Report Signed Patient: Pelon Hernández MR#: [id number] : 1995 Acct:[id number] Age/Sex: 28 / M Date of Service: 04/16/23 Loc: ED Accession Number: [id number] Procedure: CT cervical spine wo con Ordering Provider: Clayton Barbour MD PROCEDURE: CT CERVICAL SPINE WO CON INDICATIONS: fall 03/31 to right face/head. +visual change, franco, nausea TECHNIQUE: Noncontrast 3 mm thick sections acquired from the skull base to the T4 level. Sagittal and coronal reformats were then constructed. For radiation dose reduction, the following was used: automated exposure control, adjustment of mA and/or kV according to patient size. COMPARISON: None. FINDINGS: Image quality: Excellent. Bones: No fractures or dislocations. Visualized superior ribs are intact. Soft tissues: Prevertebral soft tissues are normal in thickness. No paravertebral hematomas. No apical pneumothoraces. IMPRESSION: No fracture. No acute osseous lesion. If symptoms and/or clinical suspicion for pathology persists, evaluation with MRI should be considered for further assessment. Dictated by: Merissa Gonzales MD, PhD on 04/16/2023 at 13:50 Approved by: Merissa Gonzales MD, PhD on 04/16/2023 at 13:52 CT scan - head: My Impression: Agree with Radiology interpretation Radiologist's Impression: [address] [address] [address] Scan Report Signed Patient: Pelon Hernández MR#: [id number] : 1995 Acct:[id number] Age/Sex: 28 / M Date of Service: 04/16/23 Loc: ED Accession Number: [id number] Procedure: CT head/brain wo con Ordering Provider: Clayton Barbour MD PROCEDURE: CT HEAD/BRAIN WO CON INDICATIONS: fall 03/31 to right face/head. +visual change, franco, nausea TECHNIQUE: Noncontrast 4.5 mm thick angled axial sections acquired from the foramen magnum to the vertex, with coronal and sagittal reformats. For radiation dose reduction, the following was used: automated exposure control, adjustment of mA and/or kV according to patient size. COMPARISON: [facility], CT, CT CERVICAL SPINE WO CON, 05/14/2020, 11:36. [facility], CT, CT HEAD/BRAIN WO CON, 05/14/2020, 11:36. FINDINGS: Image quality: Diagnostic. CSF spaces: Basal cisterns are patent. No extra-axial fluid collections. Ventricles are normal in size and shape. Brain: No midline shift. No intracranial masses or hemorrhage. Montano-white matter interface is normal. Skull and face: Calvarium and visualized facial bones are intact, without suspicious lesions. Sinuses: Visualized sinuses and mastoids are clear. IMPRESSION: No acute intracranial disease process. Dictated by: Merissa Gonzales MD, PhD on 04/16/2023 at 13:52 Approved by: Merissa Gonzales MD, PhD on 04/16/2023 at 13:[address]: My Impression: Agree with Radiology interpretation Radiologist's Impression: [place] [address] CT Scan Report Signed Patient: Pelon Hernández MR#: [id number] : 1995 Acct:[id number] Age/Sex: 28 / M Date of Service: 04/16/23 Loc: ED Accession Number: [id number] Procedure: CT facial bones wo con Ordering Provider: Clayton Barbour MD PROCEDURE: CT FACIAL BONES WO CON INDICATIONS: fall 03/31 to right face/head. +visual change, franco, nausea TECHNIQUE: Noncontrast 2.5 mm thick axial images acquired from the mandible through the frontal sinuses, with coronal and sagittal reformatting. For radiation dose reduction, the following was used: automated exposure control, adjustment of mA and/or kV according to patient size. COMPARISON: None. FINDINGS: Image quality: Excellent. Bones and teeth: Orbital trent are intact. Sinus trent show no fracture or deformity. Nasal bones and septum are intact. Visualized portions of the mandible demonstrate no fractures or subluxation. Zygomatic arches are intact. Pterygoid plates are intact. Visualized portions of the skull base and auditory canals are intact. Right lower 2nd molar dental vianney. Sinuses: Paranasal sinuses are aerated, without fluid levels, mucosal thickening, or mucoceles. Mastoid air cells are aerated. Soft tissues: No edema, masses, or fluid collections. No enlarged lymph nodes. No soft tissue lacerations or debris. Vascular: Visualized vascular structures appear normal in the absence of contrast. Bony vascular foramina and canals are intact. IMPRESSION: No fracture. Dictated by: Merissa Gonzales MD, PhD on 04/16/2023 at 13:55 Approved by: Merissa Gonzales MD, PhD on 04/16/2023 at 13:57 Treatment and disposition Shared decision making:: Shared decision-making was used to determine the patient's splint for evaluation in the emergency department and plan for outpatient follow-up MDM Narrative Medical decision making narrative: This is a slightly anxious appearing 28-year-old male who comes in with concern for a head injury sustained 2-4 weeks ago, with persistent right eye pain and pressure sensation since that time. Cranial nerves are intact and eye exam is generally unremarkable. CT Imaging of facial bones, head noncontrast and cervical spine are also unremarkable. Patient's ocular pressure on the left was 20 and on the affected right eye was 18. Patient's visual acuity was 20 / 30 throughout. Did attempt eye exam with ophthalmoscope in a darkened room however limited exam due to no dilation but no obvious abnormalities were noted. Patient had no other concerning exam findings, it is concerning that he is endorsing 8/10 right pain although this has been present for over 3 weeks without resulting in worsening symptoms. Patient is strongly encouraged to see an eye doctor for further evaluation. Social work is consulted though they are unavailable today and asked to call the patient to help provide him resources for assistance with covering cost of his care as well as potential options for Ophthalmology given he does not have insurance. *The patient eloped prior to completing fluorescein exam, did not have a chance to discuss results of exam findings and recommendations for next steps with the patient prior to his elopement. Did attempt to call the patient on the cell phone number listed in his chart and there was no answer. Discharge Plan Departure Patient Disposition: Elopement Clinical Impression: Pain of right eye Activity Restrictions/Additional Instructions: If patient returns to the emergency department please provide the following discharge instructions: *You have been diagnosed with [right eye pain] *What to do: *Please continue to take your regular medications as directed. [ ] New medication prescriptions sent to your pharmacy: [ ] [ ] New medication written as a paper prescription [X ] No new medications given *Please follow up with your primary care provider in 2-3 days, call for an appointment. Let them know you were seen in the Emergency Department and that we ask that you be seen in follow up. We will electronically transmit a record of today's note if your PCP is in our system. We performed a basic eye exam today a visual acuity test as well as check your ocular pressures. Your ocular pressures were normal, your visual acuity was also okay at 20/30 in both eyes. I would strongly encourage you to see an eye doctor as soon as possible for further evaluation giving you have had pain and pressure in her eye since you struck her head a month ago. We did some scans today that came back negative looking at your facial bones your head and brain and neck and we do not see any obvious injury or problems there. An eye doctor will better be able to evaluate URI and hopefully help you determine the cause of your pain. There was 1 additional exam I was unable to complete as he left the emergency department and eloped without checking in with any of us taking care of you so unfortunately did not complete the exam and have a chance to talk to you about all of the findings. I did place a referral to social work with regards to helping you get established with insurance and primary care as well as an eye doctor to hopefully get in to be seen. There is juan antonio care available if you apply for it and social work could help you with this. I am sorry you did not stay and we were unable to complete all of your exam I hope that you are able to get into an eye doctor soon. *If you do not have a primary care provider please contact the [facility] Resource line at [phone]. They will ask some questions about your medical history and help get you set up with a doctor in the community. *Return to Emergency Department if you should have any new, worsening or concerning symptoms, such as [fever greater than 101 F, shaking chills, worsening pain, persistent vomiting or other bothersome symptoms] Prescriptions: No Action No Known Home Medications Referrals: Miscellaneous,DoctorMD [Primary Care Provider] - Stand Alone Forms: Patient Portal/API ED Sign-out <Clayton Barbour MD - Last Filed: 04/17/23 08:13> Cosign ED Attending Costerranceature Attestation: I was immediately available in the department for consultation. ?This documentation has been reviewed and I agree with assessment and plan. Supervised by Clayton Barbour MD
[2023-04-16] MEDS: PROPARACAINE 0.5% OPHTH SOL 1 DROPS EYE-RIGHT (16:51)
[2023-04-16] MEDS: PROPARACAINE 0.5% OPHTH SOL 1 DROPS EYE-LEFT (16:51)
--- NOTE | 2023-04-16 18:09 | PC.NURSE ---
Patient was discovered to have eloped from fast track. Provider aware.
== END 2023-04-16 18:25 | disposition left against medical advice (07) ==
PROVIDERS: Emergency Provider Student in an Organized Health Care Education/Training Program
DX: H57.11 Ocular pain, right eye (principal)
CPT/HCPCS: 70450; 70486; 72125; 99283; 99284

== ENCOUNTER 2023-04-20 20:48 | Emergency (ER) | payer SELFPAY ==
[2023-04-20 20:52] VITALS: BP 140/92; PULSE 63; RESP 18; TEMP 37.6; O2SAT 98; BMI 23.0
--- NOTE | 2023-04-20 20:56 | DI.RAD.S_ITS ---
PROCEDURE: XR HAND RT MIN 3V INDICATIONS: injury TECHNIQUE: 3 views of the hand(s) acquired. COMPARISON: [facility], CR, XR HAND RT MIN 3V, 05/16/2019, 16:02. FINDINGS: Bones: No fractures or dislocations. Carpal bones are normally aligned. No suspicious bony lesions. Soft tissues: No suspicious soft tissue calcifications. Mild soft tissue swelling of the dorsal right hand. IMPRESSION: Dorsal right hand soft tissue swelling without definite underlying fracture. If there is persistent clinical concern for occult fracture given adequate mechanism of injury, consider repeat imaging in 10-14 days. Dictated by: Benedicto Gilliam M.D. on 04/20/2023 at 21:58 Approved by: Benedicto Gilliam M.D. on 04/20/2023 at 21:59
--- NOTE | 2023-04-20 23:18 | ED.UPPEXIN ---
HPI - Extremity Injury (Upper) General Chief Complaint: Extremity Injury, Upper Stated Complaint: rt hand injury Time Seen by Provider: 04/20/23 22:29 Source: patient Mode of arrival: Ambulatory History of Present Illness HPI narrative: 20-year-old male previously healthy complaining of right hand pain. Says that he while moving a refrigerator a couple of days ago here dropped onto his right hand. Pain is at the metacarpal level. Reports that it is hard to fully close the hand. Related Data Home Medications Medication Instructions Recorded Confirmed No Known Home Medications 04/16/23 04/16/23 Allergies Allergy/AdvReac Type Severity Reaction Status Date / Time diphenhydramine Allergy Verified 11/18/22 15:58 [From Benadryl] Patient History Medical History (Updated 04/20/23 @ 23:18 by Arnoldo Rodriguez MD) Broken collarbone Social History Smoking Status: Current every day smoker Smoking Status: Current every day smoker tobacco type: vaping alcohol intake frequency: holidays/special occasions only Substance Use Type: marijuana Exam Initial Vital Signs Initial Vital Signs: Vital Signs Temperature 99.6 F 04/20/23 20:52 Pulse Rate 63 04/20/23 20:52 Respiratory Rate 18 04/20/23 20:52 Blood Pressure 140/92 H 04/20/23 20:52 Pulse Oximetry 98 04/20/23 20:52 Oxygen Delivery Method Room Air 04/20/23 20:52 Vital signs are notable for some mild hypertension. In general he appears to be in no distress fully oriented and cooperative Extrem Other: Right hand has some diffuse swelling. No focal bony tenderness. There is some ecchymosis visible in the web spaces. He is able to extend his fingers fully and has good power there he is able to actually close his hand pretty much fully although it is slow to do so any clearly has some swelling. Capillary refill and light touch sensation are intact. He is intact flexion and extension function. Course Orders Ordered: ED Orders 04/20/23 20:56 XR hand RT min 3V Stat Vital Signs Vital signs: Vital Signs - 8 hr 04/20/23 20:52 Temperature 99.6 F Pulse Rate 63 Respiratory Rate 18 Blood Pressure 140/92 H Pulse Oximetry 98 Oxygen Delivery Method Room Air MDM - Extremity Injury (Upper) Imaging Data Right hand: My Impression: Independent review, soft tissue swelling with no fracture or dislocation Radiologist's Impression: Radiology report indicate soft tissue swelling no fracture or dislocation MDM Narrative Medical decision making narrative: 28-year-old male with a hand contusion after blunt force. No fractures, function appears to be intact. I did refer him to ortho for follow-up. Recommended symptomatic care with NSAIDs ice and elevation. No vascular or neurologic damage, tendon function appears to be intact Discharge Plan Departure Patient Disposition: Home Clinical Impression: Contusion of hand, right Qualifiers: Encounter type: initial encounter Qualified Code(s): S60.221A - Contusion of right hand, initial encounter Activity Restrictions/Additional Instructions: No fracture is seen on her x-ray. I think he will feel better once the swelling goes down. You can help the swelling go down sooner by elevating her hand above the level of the heart when able. Also recommend not doing any repetitive movement with your hand or having lifting. You can use ice to decrease the swelling, if use ice leave it on for about 10 minutes at a time you can do this several times a day, never let the ice have direct contact with your skin always keep it wrapped in a towel or something similar. You can use ibuprofen 600 mg 3 to 4 times a day as needed for pain. If this continues to bother you, you can follow up with Orthopedics for re-evaluation, I have provided contact information for the on-call physician. Prescriptions: No Action No Known Home Medications Referrals: Pelon Spicer MD [Physician] - Miscellaneous,MD Austin [Primary Care Provider] - Stand Alone Forms: Patient Portal/API
[2023-04-20 23:22] VITALS: BP 134/88; PULSE 59; RESP 16; O2SAT 98
== END 2023-04-20 23:24 | disposition home or self-care (01) ==
PROVIDERS: Emergency Provider Emergency Medicine
DX: S60.221A Contusion of right hand, initial encounter (principal); W20.8XXA Other cause of strike by thrown, projected or falling object, initial encounter; Y93.89 Activity, other specified
CPT/HCPCS: 73130; 99282; 99283